=== PATIENT | female | born 1985 | race African-American/Black ===

== ENCOUNTER 2016-06-15 10:52 | Emergency (ER) | payer MEDICAID ==
[~2016-06-15] VITALS: Ht 165.1 cm; Wt 123.0 kg
[2016-06-15 11:01] VITALS: BP 169/87
[2016-06-15] MEDS ORDERED: KETOROLAC 60MG/2ML VIAL IM ONE (12:30)
[2016-06-15] MEDS ORDERED: LIDOCAINE HCL 1% 20ML VIAL (Pyxis) INJ MC ONE (12:30)
== END 2016-06-15 13:12 | disposition home or self-care (01) ==
LOC: ER 10:53
DX: Q18.1 Preauricular sinus and cyst (principal)
CPT/HCPCS: 96372; 99283; J1885; J3490; X7700; Z7610

== ENCOUNTER 2019-01-16 19:27 | Emergency (ER) | payer SELFPAY ==
[~2019-01-16] VITALS: Ht 165.1 cm; Wt 121.4 kg
[2019-01-16 22:30] VITALS: BP 130/66
== END 2019-01-16 22:31 | disposition home or self-care (01) ==
LOC: ER 19:27
DX: L97.919 Non-pressure chronic ulcer of unspecified part of right lower leg with unspecified severity (principal); F17.200 Nicotine dependence, unspecified, uncomplicated; F12.10 Cannabis abuse, uncomplicated; Z98.890 Other specified postprocedural states
CPT/HCPCS: 82962; 99283; Z7610

== ENCOUNTER 2021-06-30 14:40 | Emergency (ER) | payer MEDICAID ==
[~2021-06-30] VITALS: Ht 165.1 cm; Wt 132.0 kg
[2021-06-30 14:49] VITALS: BP 173/118
[2021-06-30] MEDS ORDERED: IBUP-2030 MT (16:14)
== END 2021-06-30 16:39 | disposition home or self-care (01) ==
LOC: ER 14:40
DX: S83.91XA Sprain of unspecified site of right knee, initial encounter (principal); F12.10 Cannabis abuse, uncomplicated; Z91.018 Allergy to other foods; Z98.890 Other specified postprocedural states; W01.0XXA Fall on same level from slipping, tripping and stumbling without subsequent striking against object, initial encounter; Y93.89 Activity, other specified; Y92.89 Other specified places as the place of occurrence of the external cause; Y99.8 Other external cause status
CPT/HCPCS: 73562; 99283